=== PATIENT | female | born 1975 | race Caucasian/White ===

== ENCOUNTER → 2017-05-31 | Outpatient (CLI) | payer BC ==
--- NOTE | 2017-05-31 17:13 | RAD ---
DATE: 05/31/2017 EXAM: MAMMO MERLY SCREENING BILATERAL HISTORY: Routine screening COMPARISON: Baseline study The breast parenchyma shows scattered fibroglandular densities. Breast parenchyma level B. FINDINGS: There are numerous small smooth benign-appearing lymph node type densities in the axillary regions and the axillary tail regions of both breasts. There is an additional similar small smooth nodule located far posteriorly near the midline of the right breast. In the presence of these other similar nodules, this probably represents an additional lymph node. No suspicious breast nodule or microcalcifications are evident. IMPRESSION: There is no mammographic evidence of malignancy in either breast. Follow-up mammography in one year is suggested. BI-RADS CATEGORY: 2 BENIGN FINDING(S) RECOMMENDED FOLLOW-UP: 12M 12 MONTH FOLLOW-UP PQRS compliance statement: Patient information was entered into a reminder system with a target due date for the next mammogram. Mammography is a sensitive method for finding small breast cancers, but it does not detect them all and is not a substitute for careful clinical examination. A negative mammogram does not negate a clinically suspicious finding and should not result in delay in biopsying a clinically suspicious abnormality. "Our facility is accredited by the [employer] Mammography Program."
== END | disposition home or self-care (01) ==
LOC: KCIC MAMMO 15:38
PROVIDERS: ATTEND Physician Assistant
DX: Z12.31 Encounter for screening mammogram for malignant neoplasm of breast (principal)
CPT/HCPCS: 77063; G0202; 77067

== ENCOUNTER 2019-09-29 10:47 | Emergency (ER) | payer BC ==
[~2019-09-29] VITALS: Ht 167.6 cm; Wt 108.9 kg
[2019-09-29] MEDS ORDERED: IV NORMAL SALINE 1000ML BAG 1,000 ML IV STA (11:34)
--- NOTE | 2019-09-29 11:39 | PHYS DOC ---
Adult General Chief Complaint Chief Complaint: DIZZY/LIGHT HEADED HPI HPI Patient is a 44 year old female who presents with dizziness with movement has been ongoing since 6:30 yesterday morning. The patient also states she's been feeling hot and cold. The patient states that she's been having palpitations as been ongoing for the last month. She states her last menstrual period was early August. She states she did have a flu shot. Review of Systems Review of Systems Constitutional: Denies fever or chills [] Eyes: Denies change in visual acuity, redness, or eye pain [] HENT: Denies nasal congestion or sore throat [] Respiratory: Denies cough or shortness of breath [] Cardiovascular: No additional information not addressed in HPI [] GI: Denies abdominal pain, nausea, vomiting, bloody stools or diarrhea [] : Denies dysuria or hematuria [] Musculoskeletal: Denies back pain or joint pain [] Integument: Denies rash or skin lesions [] Neurologic: Reports dizziness with movement. Denies headache, focal weakness or sensory changes [] Endocrine: Denies polyuria or polydipsia [] Complete systems were reviewed and found to be within normal limits, except as documented in this note. Current Medications Current Medications Current Medications Medications (Trade) Dose Ordered Sig/Destiny Start Time Stop Time Status Last Admin Dose Admin Sodium Chloride 1,000 ml @ 1,000 mls/hr 1X STAT 09/29/19 11:34 09/29/19 12:33 DC 09/29/19 12:42 1,000 MLS/HR Allergies Allergies Allergies Coded Allergies Type Severity Reaction Last Updated Verified No Known Drug Allergies 09/29/19 No Physical Exam Physical Exam Constitutional: Well developed, well nourished, no acute distress, non-toxic appearance. [] HENT: Normocephalic, atraumatic, bilateral external ears normal, oropharynx moist, no oral exudates, nose normal. [] Eyes: PERRLA, EOMI, conjunctiva normal, no discharge. [] Neck: Normal range of motion, no tenderness, supple, no stridor. [] Cardiovascular:Heart rate regular rhythm, no murmur [] Lungs & Thorax: Bilateral breath sounds clear to auscultation [] Abdomen: Bowel sounds normal, soft, no tenderness, no masses, no pulsatile masses. [] Skin: Warm, dry, no erythema, no rash. [] Back: No tenderness, no CVA tenderness. [] Extremities: No tenderness, no cyanosis, no clubbing, ROM intact, no edema. [] Neurologic: Alert and oriented X 3, normal motor function, normal sensory function, no focal deficits noted. [] Psychologic: Affect normal, judgement normal, mood normal. [] Current Patient Data Vital Signs Vital Signs Date Time Temp Pulse Resp B/P (MAP) Pulse Ox O2 Delivery O2 Flow Rate FiO2 09/29/19 11:20 98.8 78 16 135/67 (89) 98 Room Air 98.8 Lab Values Laboratory Tests Test 09/29/19 11:20 09/29/19 11:26 09/29/19 12:12 Urine Collection Type Unknown Urine Color Yellow Urine Clarity Clear Urine pH 6.0 Urine Specific [place] 1.010 Urine Protein Negative mg/dL (NEG-TRACE) Urine Glucose (UA) Negative mg/dL (NEG) Urine Ketones (Stick) Negative mg/dL (NEG) Urine Blood Negative (NEG) Urine Nitrite Negative (NEG) Urine Bilirubin Negative (NEG) Urine Urobilinogen Dipstick 0.2 mg/dL (0.2 mg/dL) Urine Leukocyte Esterase Trace (NEG) Urine RBC 0 /HPF (0-2) Urine WBC Occ /HPF (0-4) Urine Squamous Epithelial Cells Many /LPF Urine Bacteria Few /HPF (0-FEW) POC Urine HCG, Qualitative Hcg negative (Negative) White Blood Count 7.8 x10^3/uL (4.0-11.0) Red Blood Count 4.32 x10^6/uL (3.50-5.40) Hemoglobin 13.2 g/dL (12.0-15.5) Hematocrit 39.6 % (36.0-47.0) Mean Corpuscular Volume 92 fL (79-100) Mean Corpuscular Hemoglobin 31 pg (25-35) Mean Corpuscular Hemoglobin Concent 33 g/dL (31-37) Red Cell Distribution Width 14.0 % (11.5-14.5) Platelet Count 285 x10^3/uL (140-400) Neutrophils (%) (Auto) 67 % (31-73) Lymphocytes (%) (Auto) 25 % (24-48) Monocytes (%) (Auto) 6 % (0-9) Eosinophils (%) (Auto) 2 % (0-3) Basophils (%) (Auto) 1 % (0-3) Neutrophils # (Auto) 5.2 x10^3/uL (1.8-7.7) Lymphocytes # (Auto) 2.0 x10^3/uL (1.0-4.8) Monocytes # (Auto) 0.4 x10^3/uL (0.0-1.1) Eosinophils # (Auto) 0.1 x10^3/uL (0.0-0.7) Basophils # (Auto) 0.1 x10^3/uL (0.0-0.2) Sodium Level 141 mmol/L (136-145) Potassium Level 4.2 mmol/L (3.5-5.1) Chloride Level 104 mmol/L (98-107) Carbon Dioxide Level 28 mmol/L (21-32) Anion Gap 9 (6-14) Blood Urea Nitrogen 8 mg/dL (7-20) Creatinine 0.6 mg/dL (0.6-1.0) Estimated GFR (Cockcroft-Gault) 109.6 BUN/Creatinine Ratio 13 (6-20) Glucose Level 100 mg/dL (70-99) H Calcium Level 9.0 mg/dL (8.5-10.1) Total Bilirubin 0.2 mg/dL (0.2-1.0) Aspartate Amino Transferase (AST) 11 U/L (15-37) L Alanine Aminotransferase (ALT) 14 U/L (14-59) Alkaline Phosphatase 77 U/L (46-116) Troponin I Quantitative < 0.017 ng/mL (0.000-0.055) Total Protein 7.5 g/dL (6.4-8.2) Albumin 3.5 g/dL (3.4-5.0) Albumin/Globulin Ratio 0.9 (1.0-1.7) L Laboratory Tests 09/29/19 12:12 Laboratory Tests 09/29/19 12:12 EKG EKG EKG interpreted by Dr. Yancy Pozo with rate of 70. [] Radiology/Procedures Radiology/Procedures [facility] [address] [facility] [place], [place] [id number] IMAGING REPORT Signed PATIENT: KADEN PAREDES PACCOUNT: [id number] : 1975 LOCATION: ER AGE: 44 SEX: F EXAM STATUS: REG ER ORD. PHYSICIAN: MILLICENT YARBROUGH APRN REASON: dizziness PROCEDURE: CT HEAD WO CONTRAST EXAM: Head CT without contrast. HISTORY: Dizziness. TECHNIQUE: Computed tomographic images of the head were obtained without contrast. *One or more of the following individualized dose reduction techniques were utilized for this examination: 1. Automated exposure control. 2. Adjustment of the mA and/or kV according to patient size. 3. Use of iterative reconstruction technique. COMPARISON: None. FINDINGS: There is no acute or subacute extra-axial or intraparenchymal hemorrhage. There is no mass effect or midline shift. There is no hydrocephalus. The marshall-white matter differentiation pattern is intact. There is evidence of lens surgery. The mastoid air cells are clear. 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 There is no suspicious calvarial lesion. IMPRESSION: No acute intracranial finding. Note is made that MRI is more sensitive for acute infarction. Electronically signed by: Jackie Maldonado MD (09/29/2019 12:23 PM) [facility] DICTATED and SIGNED BY: JACKIE MALDONADO MD DATE: 09/29/19 1223 [][facility] [address] [place] [address] IMAGING REPORT Signed PATIENT: KADEN PAREDES PACCOUNT: [id number] : 1975 LOCATION: ER AGE: 44 SEX: F EXAM STATUS: REG ER ORD. PHYSICIAN: MILLICENT YARBROUGH APRN REASON: dizziness, palpitations PROCEDURE: CHEST PA & LATERAL PA and lateral views of the chest. Comparison: None. Indication: Dizziness and palpitations Findings: The heart size is normal. No pneumothorax or effusion. No air space or interstitial disease. The bony structures are intact. Impression: 1. No acute cardiopulmonary process. Electronically signed by: Dakotah Argueta MD (09/29/2019 12:13 PM) [facility] DICTATED and SIGNED BY: DAKOTAH ARGUETA MD DATE: 09/29/19 1213 Course & Med Decision Making Course & Med Decision Making Pertinent Labs and Imaging studies reviewed. (See chart for details) Will get EKG, labs, chest x-ray, and CT head. Will also get UA/Urine . Labs are unremarkable. Urine shows leukocytes. Imaging is unremarkable. Will d/c home to follow up with primary care. EKG is unremarkable. Dragon Disclaimer Dragon Disclaimer This electronic medical record was generated, in whole or in part, using a voice recognition dictation system. Departure Departure Impression: Primary Impression: Dizziness Additional Impressions: Palpitations Urinary tract infection Disposition: HOME, SELF-CARE Condition: STABLE Referrals: YOLANDA DUARTE MD (PCP) Patient Instructions: Dizziness, Palpitations, Urinary Tract Infection Additional Instructions: Thank you for visiting [facility]. We appreciate you trusting us with your care. If any additional problems come up don't hesitate to return to visit us. Please follow up with your primary care provider so they can plan additional care if needed and know about the problem that you had. If symptoms worsen come back to the Emergency Department. Any concerning symptoms that start such as chest pain, shortness of air, weakness or numbness on one side of the body, running high fevers or any other concerning symptoms return to the ER. You have been prescribed an antibiotic today to help fight your infection. Please take all of the antibiotic as directed. If after 48 hours the infection is not improving, please return for more care. If the infection worsens, return to ER for additional care. Scripts Cephalexin (KEFLEX) 500 Mg Capsule 1 CAP PO BID for 7 Days, #14 CAP 0 Refills Prov: MILLICENT YARBROUGH APRN 09/29/19 Problem Qualifiers Additional Impressions: Urinary tract infection Urinary tract infection type: acute cystitis Hematuria presence: without hematuria Qualified Codes: N30.00 - Acute cystitis without hematuria MILLICENT YARBROUGH APRN Sep 29, 2019 11:39
[2019-09-29 11:52] LABS: BILIRUBIN,URINE NEGATIVE (NEG); CLARITY,URINE CLEAR; COLOR,URINE YELLOW; NITRITE,URINE NEGATIVE (NEG); PROTEIN,URINE NEGATIVE (NEG-TRACE); UROBILINOGEN,URINE 0.2 mg/dL (0.2 mg/dL)
[2019-09-29 12:04] LABS: BACTERIA,URINE FEW /HPF (0-FEW); RBC,URINE 0 /HPF (0-2); WBC,URINE OCC /HPF (0-4)
[2019-09-29 12:05] LABS: SQUAMOUS EPITHELIAL CELL,UR MANY /LPF
--- NOTE | 2019-09-29 12:16 | RAD ---
PA and lateral views of the chest. Comparison: None. Indication: Dizziness and palpitations Findings: The heart size is normal. No pneumothorax or effusion. No air space or interstitial disease. The bony structures are intact. Impression: 1. No acute cardiopulmonary process. Electronically signed by: Dakotah Argueta MD (09/29/2019 12:13 PM) [facility]
[2019-09-29 12:23] LABS: BASO # 0.1 x10^3/uL (0.0-0.2); BASO % 1 % (0-3); EOS # 0.1 x10^3/uL (0.0-0.7); EOS % 2 % (0-3); HEMATOCRIT 39.6 % (36.0-47.0); HEMOGLOBIN 13.2 g/dL (12.0-15.5); LYMPH % 25 % (24-48); MEAN CORPUSCULAR HEMOGLOBIN 31 pg (25-35); MEAN CORPUSCULAR HGB CONC 33 g/dL (31-37); MEAN CORPUSCULAR VOLUME 92 fL (79-100); MONO # 0.4 x10^3/uL (0.0-1.1); MONO % 6 % (0-9); NEUT # 5.2 x10^3/uL (1.8-7.7); NEUT % 67 % (31-73); PLATELET COUNT 285 x10^3/uL (140-400); RED BLOOD COUNT 4.32 x10^6/uL (3.50-5.40); WHITE BLOOD COUNT 7.8 x10^3/uL (4.0-11.0)
--- NOTE | 2019-09-29 12:25 | RAD ---
EXAM: Head CT without contrast. HISTORY: Dizziness. TECHNIQUE: Computed tomographic images of the head were obtained without contrast. *One or more of the following individualized dose reduction techniques were utilized for this examination: 1. Automated exposure control. 2. Adjustment of the mA and/or kV according to patient size. 3. Use of iterative reconstruction technique. COMPARISON: None. FINDINGS: There is no acute or subacute extra-axial or intraparenchymal hemorrhage. There is no mass effect or midline shift. There is no hydrocephalus. The marshall-white matter differentiation pattern is intact. There is evidence of lens surgery. The mastoid air cells are clear. 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 There is no suspicious calvarial lesion. IMPRESSION: No acute intracranial finding. Note is made that MRI is more sensitive for acute infarction. Electronically signed by: Jackie Taylor MD (09/29/2019 12:23 PM) [facility]
[2019-09-29 12:36] LABS: CREATININE 0.6 mg/dL (0.6-1.0); GFR 109.6; POTASSIUM 4.2 mmol/L (3.5-5.1)
[2019-09-29 12:43] LABS: ALBUMIN 3.5 g/dL (3.4-5.0); ALBUMIN/GLOBULIN RATIO 0.9 (1.0-1.7); TOTAL BILIRUBIN 0.2 mg/dL (0.2-1.0); TOTAL PROTEIN 7.5 g/dL (6.4-8.2)
[2019-09-29] MEDS ORDERED: CEPH-264 PO (12:58)
[2019-09-29 13:27] VITALS: BP 115/71
--- NOTE | 2019-09-29 14:22 | EKG ---
[facility] [address] [place] [address] Test Date: 2019-09-29 Test Time: 11:44:57 Pat Name: KADEN PAREDES Department: Room: Gender: F [employer]: : 1975 Requested By: MILLICENT YARBROUGH Order Number: [id number] Reading MD: Measurements Intervals [place] Rate: 70 P: 38 DE: 138 QRS: 2 QRSD: 90 T: 7 QT: 378 QTc: 410 Interpretive Statements SINUS RHYTHM NON SPECIFIC T ABNORMALITY BORDERLINE ECG No previous ECG available for comparison
== END 2019-09-29 13:35 | disposition home or self-care (01) ==
LOC: ER 10:47
DX: R42 Dizziness and giddiness (principal); R00.2 Palpitations; N30.00 Acute cystitis without hematuria
CPT/HCPCS: 36415; 70450; 71046; 80053; 81001; 81025; 84484; 85025; 87086; 93005; 96360; 99285; J7030

== ENCOUNTER → 2020-10-28 | Outpatient (CLI) | payer BC ==
[~2020-10-28] MED LIST: CEPH-264 PO
--- NOTE | 2020-10-28 14:34 | RAD ---
Examination: 1. Bilateral digital diagnostic mammogram. 2. Limited right breast ultrasound. INDICATION: Bilateral breast pain. Patient is a 45-year-old woman due for mammographic screening who a month ago had a single episode of bilateral breast nipple tingling first on the left then on the ri ght. She reports a family history of breast cancer in 2 sisters at approximately her age. COMPARISON: Bilateral mammogram of 05/31/2017. TECHNIQUE: CC and MLO views of both breasts were obtained with 2-D and 3-D technique and reviewed wit h computer-aided detection. Thereafter, targeted ultrasound of the right breast was performed. FINDINGS: Scattered fibroglandular densities. Negative left mammogram. A 9 mm isodense mass in the upper outer right breast with obscured margins is mammographically new an d needs additional imaging with targeted right breast ultrasound. Targeted right breast ultrasound showed a parallel orientation oval 9 mm mass with irregular, occasio georges angular margins at the 10:00 position 7 cm from nipple that correlates with the mammographic fi nding. Sonographic survey of the right axilla reveals no adenopathy. The subareolar right breast is a lso unremarkable. IMPRESSION: Suspicious 9 mm mass in the upper-outer quadrant right breast. BI-RADS Category 4 Findings suspicious for malignancy. Ultrasound-guided right breast core needle biopsy is recommended. Discussed with the patient. Discussed with the patient's referring provider Jackie Ingram PA-C by telepho ne at 10:58 AM on 10/28/2020. Electronically signed by: Chanel Walter MD (10/28/2020 2:32 PM) [id number]
== END ==
LOC: MAMMO 08:50
PROVIDERS: ATTEND Physician Assistant
DX: R92.2 Inconclusive mammogram (principal); N63.11 Unspecified lump in the right breast, upper outer quadrant
CPT/HCPCS: 76641; 77066; G0279; 77062